=== PATIENT | female | born 1945 | race Caucasian/White ===

== ENCOUNTER 2017-11-06 10:09 | Day surgery (SDC) | payer OTHER ==
[~2017-11-06 10:09] MED LIST: ASPI-516 CHEW; CITA40TA4 PO; LISI20TA3 PO; METF1000 PO; PROP80TA PO; ROSU1TAB8 PO
[2017-11-06 10:25] VITALS: BP 208/108; PULSE 63; RESP 20; TEMP 97.6; O2SAT 94
[2017-11-06] MEDS ORDERED: ceFAZolin 2 GM PREMIX 50 ML IV SCH (10:30)
[2017-11-06] MEDS ORDERED: SODIUM CHLOR 0.45% 1000 ML IV SCH (10:30)
== END 2017-11-06 10:40 | disposition home or self-care (01) ==
LOC: HROP 10:09 → HRIP 10:10 → HROP 10:40
PROVIDERS: ATTEND Neurological Surgery
DX: G91.2 (Idiopathic) normal pressure hydrocephalus (principal)

== ENCOUNTER 2017-11-13 09:51 | Inpatient (IN) | payer OTHER, MEDICARE ==
[~2017-11-13] VITALS: Ht 162.6 cm; Wt 72.7 kg
[~2017-11-13 09:51] MED LIST changes: -ASPI-516 CHEW
[2017-11-13 10:10] VITALS: BP 103/76; PULSE 62; RESP 20; TEMP 97.9; O2SAT 98
[2017-11-13] MEDS ORDERED: MEMA1TAB2 PO (10:30)
[2017-11-13] MEDS ORDERED: METF500T PO (10:30)
[2017-11-13] MEDS ORDERED: PANT40TA3 PO (10:30)
[2017-11-13 10:57] LABS: AUTOMATED NEUTROPHIL # 5.2 TH/MM3 (1.8-7.7); BASOPHIL # 0.1 TH/MM3 (0-0.2); BASOPHIL % 0.8 % (0.0-2.0); EOSINOPHIL # 0.1 TH/MM3 (0-0.4); HEMATOCRIT 36.3 % (35.0-46.0); HEMOGLOBIN 12.4 GM/DL (11.6-15.3); LYMPH % 24.8 % (9.0-44.0); MEAN CELL VOLUME 85.5 FL (80.0-100.0); MEAN CORPUSCULAR HEMOGLOBIN 29.3 PG (27.0-34.0); MEAN CORPUSCULAR HGB CONC 34.3 % (32.0-36.0); MEAN PLATELET VOLUME 7.9 FL (7.0-11.0); MONOCYTE # 0.6 TH/MM3 (0-0.9); NEUT % 65.4 % (16.0-70.0); PLATELET COUNT 212 TH/MM3 (150-450); RED BLOOD COUNT 4.24 MIL/MM3 (4.00-5.30)
[2017-11-13] MEDS: SODIUM CHLOR 0.45% 1000 ML IV SCH (11:00)
[2017-11-13 11:15] LABS: BICARBONATE 32.4 MEQ/L (21.0-32.0); CALCIUM 9.4 MG/DL (8.5-10.1); CREATININE 1.11 MG/DL (0.50-1.00)
[2017-11-13] MEDS ORDERED: SODIUM CHLORIDE 0.9% FLUSH 10 ML FLUSH IV FLUSH PRN ×2 (11:45→16:00)
[2017-11-13] MEDS ORDERED: LACTULOSE SYRUP 20 GM/30 ML CUP PO PRN ×2 (11:45→16:00)
[2017-11-13] MEDS: ceFAZolin 2 GM PREMIX 50 ML IV SCH ×2 (11:53→13:41)
[2017-11-13] MEDS ORDERED: MAGNESIUM HYDROXIDE SUSP 30 ML CUP PO PRN ×2 (12:00→16:00)
[2017-11-13] MEDS ORDERED: BISACODYL 10 MG SUPP RECTAL PRN ×2 (12:00→16:00)
[2017-11-13] MEDS ORDERED: ONDANSETRON HCL 4 MG/2 ML VIAL IV PUSH PRN (12:00)
[2017-11-13] MEDS ORDERED: SENNOSIDES 8.6 MG TAB PO PRN ×2 (12:00→16:00)
[2017-11-13] MEDS: SODIUM CHLOR 0.9% 1000 ML INJ 1,000 ML IV SCH (12:00)
[2017-11-13] MEDS ORDERED: ALUMINUM/MAGNESIUM/SIMETH 30 ML CUP PO PRN (12:00)
[2017-11-13] MEDS ORDERED: MIDAZOLAM HCL 2 MG/2 ML VIAL ONE (12:13)
[2017-11-13 13:10] VITALS: BP 166/98; PULSE 64; RESP 16; TEMP 97.7; O2SAT 90
[2017-11-13 13:25] VITALS: BP 168/89; PULSE 60; RESP 16; O2SAT 98
[2017-11-13 13:55] VITALS: BP 156/89; PULSE 60; RESP 16; O2SAT 98
[2017-11-13 15:00] VITALS: BP 148/80; PULSE 60; RESP 16; O2SAT 97
--- NOTE | 2017-11-13 15:04 | RADRPT ---
EXAM DATE/TIME: 11/13/2017 13:27 [place] COMPARISON: No previous studies available for comparison. INDICATIONS : MEDICAL HISTORY : Memory Loss Hydrocephalus Osteoporosis DVT GERD Dementia Diabetes SURGIAL HISTORY : Hysterectomy Right Shoulder SX ENCOUNTER: Initial ACUITY: 3 weeks PAIN SCORE: 0/10 LUMBAR PUNCTURE TIME: 12:45 hours FLUORO TIME: 3.1 minutes IMAGE SERIES: 2 SEDATION TIME: 30 minutes LEVEL: Tip of lumbar drain was placed at T10 DEVICE(S): 1.) 5 [place] lumbar drain catheter PROCEDURE : 1. Fluoroscopically guided lumbar drain placement. 2. Conscious sedation with continuous EKG and oximetry monitoring. The risks, benefits and alternatives to the procedure were explained and verbal and written consent w as obtained. The site was prepped in sterile fashion. Full sterile technique was used, including ca p, mask, sterile gloves and gown and a large sterile sheet. Hand hygiene and 2% chlorhexidine and/or betadine/alcohol prep was utilized per protocol for cutaneous antisepsis. The skin and subcutaneous tissues were infiltrated with local anesthetic solution. With fluoroscopic guidance the lumbar thecal sac was punctured with a 14 gauge Touhy needle and a lum bar drain was placed with its tip at the level as described above and the catheter was sutured in adrian ce. CSF was identified returning from the catheter at the termination of the procedure. Conscious sedation was performed with the prescribed dosages and duration as above in the presence of an independent trained radiology nurse to assist in the monitoring of the patient. EKG and oximetry remained stable throughout the procedure. The patient tolerated the procedure well and there were n o complications. The patient was sent to post anesthesia recovery in stable condition. CONCLUSION: Uncomplicated lumbar drain placement as above. Soham Rod MD on November 13, 2017 at 14:56 Board Certified Radiologist. This report was verified electronically.
[2017-11-13] MEDS ORDERED: DEXTROSE 50% IN WATER 50 ML VIAL(D50) IV PUSH PRN (16:00)
[2017-11-13] MEDS ORDERED: GLUCAGON 1 MG/ML VIAL OTHER PRN (16:00)
[2017-11-13] MEDS ORDERED: RESP: ALBUTEROL 2.5 MG/3 ML NEB (PRN) NEB (16:00)
[2017-11-13] MEDS ORDERED: ZOLPIDEM TARTRATE 5 MG TAB PO PRN (16:00)
[2017-11-13] MEDS ORDERED: oxyCODONE/ACETAMINOPHEN 5 MG/325 MG TAB PO PRN ×2 (16:00)
[2017-11-13] MEDS: INSULIN NovoLIN REGULAR SUPPLEMENTAL SCALE SQ SCH ×2 (17:35→21:00)
[2017-11-13] MEDS: metFORMIN HCL 500 MG TAB PO SCH (18:00)
[2017-11-13 20:00] VITALS: BP 156/81; PULSE 67; RESP 18; TEMP 98.5; O2SAT 97
[2017-11-13] MEDS: SODIUM CHLORIDE 0.9% FLUSH 10 ML FLUSH IV FLUSH SCH (21:00)
[2017-11-13] MEDS: DOCUSATE SODIUM 50 MG/SENNA 8.6 MG TAB PO SCH (21:00)
[2017-11-13] MEDS ORDERED: SODIUM CHLORIDE 0.9% FLUSH 10 ML FLUSH IV FLUSH SCH (21:00)
[2017-11-13] MEDS ORDERED: DOCUSATE SODIUM 50 MG/SENNA 8.6 MG TAB PO SCH (21:00)
[2017-11-14] VITALS: BP 188/90; PULSE 78; RESP 18; TEMP 97.4; O2SAT 94
[2017-11-14] MEDS: SODIUM CHLOR 0.9% 1000 ML INJ 1,000 ML IV SCH (02:24)
[2017-11-14] MEDS: cloNIDine HCL 0.1 MG TAB PO PRN (02:52)
[2017-11-14 04:00] VITALS: BP 135/74; PULSE 80; RESP 18; TEMP 98.1; O2SAT 96
[2017-11-14 08:00] VITALS: BP 148/69; PULSE 58; RESP 18; TEMP 98; O2SAT 98
[2017-11-14] MEDS: INSULIN NovoLIN REGULAR SUPPLEMENTAL SCALE SQ SCH ×4 (08:00→21:25)
[2017-11-14] MEDS: LISINOPRIL 20 MG TAB PO SCH (08:04)
[2017-11-14] MEDS: DOCUSATE SODIUM 50 MG/SENNA 8.6 MG TAB PO SCH ×2 (08:04→21:25)
[2017-11-14] MEDS: CITALOPRAM HYDROBROMIDE 40 MG TAB PO SCH (08:04)
[2017-11-14] MEDS: PANTOPRAZOLE SOD 40 MG DELAYED RELEASE TAB PO SCH (08:05)
[2017-11-14] MEDS: HYDROCHLOROTHIAZIDE 25 MG TAB PO SCH (08:05)
[2017-11-14] MEDS: ATORVASTATIN 10 MG TAB PO SCH (08:05)
[2017-11-14] MEDS: PROPRANOLOL HCL 80 MG TAB PO SCH (08:12)
[2017-11-14] MEDS: metFORMIN HCL 500 MG TAB PO SCH ×2 (08:21→17:51)
[2017-11-14] MEDS: SODIUM CHLORIDE 0.9% FLUSH 10 ML FLUSH IV FLUSH SCH ×2 (08:22→21:25)
[2017-11-14 12:00] VITALS: BP 144/76; PULSE 65; RESP 18; TEMP 98; O2SAT 96
--- NOTE | 2017-11-14 13:12 | PD.CONS ---
HPI Service [facility] Hospitalists Consult Requested By Dr. Fox Reason for Consult Medical management Primary Care Physician Unknown Diagnoses: (1) Hypertension (2) Diabetes mellitus (3) Hyperlipidemia (4) NPH (normal pressure hydrocephalus) History of Present Illness The patient is a 72-year-old female with history of normal pressure hydrocephalus who is admitted to the neurosurgery service. Hospitalist consultation was requested for medical management. Patient reportedly has a history of hypertension, hyperlipidemia, and diabetes. She has no specific complaints at this time. Apparently she has had significant memory loss over the past few months as well as difficulty with ambulation. These are attributed to the normal pressure hydrocephalus. Review of Systems ROS Limitations: Poor Historian Constitutional: DENIES: Fever, Chills, Night Sweats Eyes: DENIES: Blurred vision, Vision loss Ears, nose, mouth, throat: DENIES: Hearing loss Respiratory: DENIES: Cough, Wheezing, Sputum production, Shortness of breath Cardiovascular: DENIES: Chest pain, Palpitations, Dyspnea on Exertion, Lower Extremity Edema Gastrointestinal: DENIES: Abdominal pain, Constipation, Diarrhea, Nausea, Vomiting Genitourinary: DENIES: Urinary frequency, Urinary incontinence, Urgency, Hematuria, Dysuria, Nocturia Musculoskeletal: DENIES: Joint pain, Muscle aches Integumentary: DENIES: Pruritus, Rash Hematologic/lymphatic: DENIES: Bruising Neurologic: COMPLAINS OF: Abnormal gait, DENIES: Headache Past Family Social History Allergies: Coded Allergies: No Known Allergies (Unverified , 11/13/17) Past Medical History Normal pressure hydrocephalus Hyperlipidemia Hypertension Diabetes mellitus Past Surgical History Tonsillectomy Hysterectomy Right shoulder rotator cuff surgery Reported Medications Crestor 20 mg daily at bedtime Propranolol 80 mg daily at bedtime Lisinopril/HCTZ 20/25 daily Citalopram 40 mg daily Namenda 10 mg twice a day Pantoprazole 40 mg daily Metformin 1000 mg daily, 500 mg every afternoon Family History Cancer Aneurysm Social History Quit smoking 3 weeks ago. Denies alcohol or illicit drug use. Physical Exam Vital Signs Vital Signs Date Time Temp Pulse Resp B/P (MAP) Pulse Ox O2 Delivery O2 Flow Rate FiO2 11/14/17 08:00 98.0 58 18 148/69 (95) 98 11/14/17 04:00 98.1 80 18 135/74 (94) 96 11/14/17 00:00 97.4 78 18 188/90 (122) 94 11/13/17 20:00 98.5 67 18 156/81 (106) 97 11/13/17 15:00 60 16 148/80 (102) 97 11/13/17 13:55 60 16 156/89 (111) 98 11/13/17 13:25 60 16 168/89 (115) 98 11/13/17 13:10 97.7 64 16 166/98 (120) 90 Physical Exam GENERAL: Well-nourished, well-developed female in no acute distress. HEENT: Normocephalic, atraumatic. Pupils equal, round and reactive. Extraocular movements intact. No scleral icterus. No injection or drainage. Oropharynx is clear. Mucous membranes are moist. CARDIOVASCULAR: Regular rate and rhythm without murmurs, gallops, or rubs. RESPIRATORY: Clear to auscultation. No wheezes, rales, or rhonchi. Breathing is non-labored. GASTROINTESTINAL: Abdomen soft, non-tender, nondistended. EXTREMITIES: No lower extremity edema. No calf tenderness. PSYCH: Alert, answers questions appropriately. She is confused and has poor recall. Result Diagram: 11/13/17 1048 11/13/17 1048 Imaging Last Impressions Lumbar Puncture Fluoroscopy 11/13/17 1121 Signed Impressions: Service Date/Time: Monday, November 13, 2017 13:27 - CONCLUSION: Uncomplicated lumbar drain placement as above. Soham Rod MD Assessment and Plan Assessment and Plan 1. Normal pressure hydrocephalus: Management per neurosurgery. Lumbar drain placed by interventional radiology. Continue physical therapy. 2. Diabetes mellitus: Diabetic diet. Monitor Accu-Cheks and cover with sliding scale insulin. Continue metformin. 3. Hypertension: Continue home medications. 4. Hyperlipidemia: Continue statin. 5. DVT prophylaxis: MARGAUX Turpin. Avoid chemical prophylaxis secondary to lumbar drain placement, possible future procedures. Galindo Finney MD Nov 14, 2017 13:12
[2017-11-14 16:00] VITALS: BP 147/82; PULSE 60; RESP 18; TEMP 99; O2SAT 97
--- NOTE | 2017-11-14 17:17 | HHI.NSPN ---
(Ben Sierra) History Chief Complaint: Difficulty walking. Improving after lumbar spinal drain. (Ben Sierra) Interval History 11/14/2017: Patient underwent a temporary lumbar spinal drain placement on 2017. She had physical therapy today and states that her gait was much better since the lumbar spinal drain was placed. She denies any headaches. She denies any pain in her legs. She has a Bourgeois catheter in place. (Ben Sierra) Review of Systems General: Negative for: fever, chills, insomnia Respiratory: Negative for: shortness of breath, cough, sputum Cardiovascular: Negative for: chest pain Gastrointestinal: Negative for: nausea, vomitting, diarrhea, constipation ( Ben Sierra) Exam Results Vital Signs Date Time Temp Pulse Resp B/P (MAP) Pulse Ox O2 Delivery O2 Flow Rate FiO2 11/14/17 12:00 98.0 65 18 144/76 (98) 96 11/13/17 11:02 Room Air Intake and Output 11/14/17 11/14/17 11/15/17 08:00 16:00 00:00 Intake Total 1000 ml Output Total 80 ml Balance 920 ml (Ben Sierra) Physical Examination GENERAL: Patient resting in bed in no acute distress and is pleasant. HEAD: Normocephalic, atraumatic. EYES: Pupils equal. Sclera non icteric. RESPIRATORY: CTA Bilaterally HEART: NSR Normal S1 and S2 ABDOMEN: Soft Positive BS SKIN: No cyanosis or erythema MUSCLE: Patient moves all 4 extremities, 5/5 strength in the lower extremities. NEUROLOGIC: Patient is awake and alert. Speech is clear and appropriate. Follows commands well. Sensation intact in extremities, comprehension is good. Cranial Nerves II-XII grossly intact. (Ben Sierra) Lab, Micro, Other Results Last Impressions Lumbar Puncture Fluoroscopy 11/13/17 1121 Signed Impressions: Service Date/Time: Monday, November 13, 2017 13:27 - CONCLUSION: Uncomplicated lumbar drain placement as above. Soham Rod MD 11/14/17 11/14/17 11/15/17 15:00 23:00 07:00 # Voids 3 (Ben Sierra) Medical Decision Making Impression and Plan A: 72 -year-old female with symptoms and MRI findings suggestive of normal- pressure hydrocephalus. She underwent a temporary lumbar spinal drain for further evaluation. P: She states that her gait is better after day 1 of drainage. We will have her participate with physical therapy tomorrow morning and then remove her lumbar spinal drain and she'll have to lay flat for 6 hours and then will be discharged home subsequently if no drainage. (Ben Sierra) Attending Statement The exam, history, and the medical decision-making described in the above note were completed with the assistance of the mid-level provider. I reviewed and agree with the findings presented. I attest that I had a [id number] encounter with the patient on the same day, and personally performed and documented my assessment and findings in the medical record. relates improvement of her gait with lumbar CSF drainage. Continue with drainage trial. (Omar Fox MD) Ben Sierra Nov 14, 2017 17:17 Omar Fox MD Nov 15, 2017 08:44
[2017-11-14 20:00] VITALS: BP 132/74; PULSE 58; RESP 18; TEMP 97.3; O2SAT 95
[2017-11-15] VITALS: BP 185/81; PULSE 70; RESP 18; TEMP 97.9; O2SAT 99
[2017-11-15 04:00] VITALS: PULSE 69; RESP 18; TEMP 97.9; O2SAT 95
[2017-11-15] MEDS: cloNIDine HCL 0.1 MG TAB PO PRN (06:52)
[2017-11-15 07:42] VITALS: BP 162/74; PULSE 63; RESP 20; TEMP 97.4; O2SAT 95
[2017-11-15] MEDS: INSULIN NovoLIN REGULAR SUPPLEMENTAL SCALE SQ SCH ×3 (08:00→16:21)
[2017-11-15] MEDS: SODIUM CHLORIDE 0.9% FLUSH 10 ML FLUSH IV FLUSH SCH (08:33)
[2017-11-15] MEDS: metFORMIN HCL 500 MG TAB PO SCH ×2 (08:34→18:00)
[2017-11-15] MEDS: CITALOPRAM HYDROBROMIDE 40 MG TAB PO SCH (08:34)
[2017-11-15] MEDS: HYDROCHLOROTHIAZIDE 25 MG TAB PO SCH (08:34)
[2017-11-15] MEDS: LISINOPRIL 20 MG TAB PO SCH (08:35)
[2017-11-15] MEDS: PROPRANOLOL HCL 80 MG TAB PO SCH (08:35)
[2017-11-15] MEDS: DOCUSATE SODIUM 50 MG/SENNA 8.6 MG TAB PO SCH (08:36)
[2017-11-15] MEDS: ATORVASTATIN 10 MG TAB PO SCH (08:36)
[2017-11-15] MEDS: PANTOPRAZOLE SOD 40 MG DELAYED RELEASE TAB PO SCH (08:36)
--- NOTE | 2017-11-15 09:12 | HHI.NSPN ---
(Ben Seirra) History Chief Complaint: Difficulty walking. Improving after lumbar spinal drain. (Ben Sierra) Interval History 11/14/2017: Patient underwent a temporary lumbar spinal drain placement on 2017. She had physical therapy today and states that her gait was much better since the lumbar spinal drain was placed. She denies any headaches. She denies any pain in her legs. She has a Bourgeois catheter in place. 11/15/17: Pt has mild headache this morning. Had confusion last night forgot where she was. Bourgeois remains in place. Lumbar spinal drain in place. We will have PT work with pt today and then remove drain. (Ben Sierra) Review of Systems General: Negative for: fever, chills, insomnia Respiratory: Negative for: shortness of breath, cough, sputum Cardiovascular: Negative for: chest pain Gastrointestinal: Negative for: nausea, vomitting, diarrhea, constipation ( Ben Sierra) Exam Results Vital Signs Date Time Temp Pulse Resp B/P (MAP) Pulse Ox O2 Delivery O2 Flow Rate FiO2 11/15/17 07:42 97.4 63 20 162/74 (103) 95 11/13/17 11:02 Room Air (Ben Sierra) Physical Examination GENERAL: Patient resting in bed in no acute distress and is pleasant. HEAD: Normocephalic, atraumatic. EYES: Pupils equal. Sclera non icteric. RESPIRATORY: CTA Bilaterally HEART: NSR Normal S1 and S2 ABDOMEN: Soft Positive BS SKIN: No cyanosis or erythema MUSCLE: Patient moves all 4 extremities, 5/5 strength in the lower extremities. NEUROLOGIC: Patient is awake and alert. Speech is clear and appropriate. Follows commands well. Sensation intact in extremities, comprehension is good. Cranial Nerves II-XII grossly intact. Pt with some confusion and disorientation today. (Ben Sierra) Lab, Micro, Other Results Last Impressions Lumbar Puncture Fluoroscopy 11/13/17 1121 Signed Impressions: Service Date/Time: Monday, November 13, 2017 13:27 - CONCLUSION: Uncomplicated lumbar drain placement as above. Soham Rod MD (Ben Sierra) Medical Decision Making Impression and Plan A: 72 -year-old female with symptoms and MRI findings suggestive of normal- pressure hydrocephalus. She underwent a temporary lumbar spinal drain for further evaluation. P: PT this morning then remove lumbar spinal drain. Pt will lay flat for 6 hours after drain removed. She will be discharged subsequently. (Ben Sierra) Attending Statement The exam, history, and the medical decision-making described in the above note were completed with the assistance of the mid-level provider. I reviewed and agree with the findings presented. I attest that I had a [id number] encounter with the patient on the same day, and personally performed and documented my assessment and findings in the medical record. (Omar Fox MD) Ben Sierra Nov 15, 2017 09:12 Omar Fox MD Nov 15, 2017 12:10
[2017-11-15] MEDS ORDERED: PNEUMOCOCCAL POLYVALENT INJ 25 MCG/0.5 ML SYR IM ONE (10:00)
[2017-11-15] MEDS: SODIUM CHLOR 0.45% 1000 ML IV SCH (11:00)
[2017-11-15 11:54] VITALS: BP 154/74; PULSE 57; RESP 20; TEMP 98.5; O2SAT 97
--- NOTE | 2017-11-15 14:00 | HHI.PR ---
Subjective Remarks Follow up renal insufficiency, diabetes. Patient states that she feels much better today. Lumbar drain was removed. Ambulating better. Objective Vitals Vital Signs Date Time Temp Pulse Resp B/P (MAP) Pulse Ox O2 Delivery O2 Flow Rate FiO2 11/15/17 11:54 98.5 57 20 154/74 (100) 97 11/15/17 07:42 97.4 63 20 162/74 (103) 95 11/15/17 04:00 97.9 69 18 95 11/15/17 00:00 97.9 70 18 185/81 (115) 99 11/14/17 20:00 97.3 58 18 132/74 (93) 95 11/14/17 16:00 99.0 60 18 147/82 (103) 97 I/O 11/14/17 11/14/17 11/14/17 11/15/17 11/15/17 11/15/17 07:00 15:00 23:00 07:00 15:00 23:00 Intake Total 1000 ml Output Total 80 ml Balance 920 ml Intake IV Total 1000 ml Drainage Total 80 ml # Voids 3 Result Diagram: 11/13/17 1048 11/13/17 1048 Imaging Last Impressions Lumbar Puncture Fluoroscopy 11/13/17 1121 Signed Impressions: Service Date/Time: Monday, November 13, 2017 13:27 - CONCLUSION: Uncomplicated lumbar drain placement as above. Soham Rod MD Objective Remarks General: No acute distress. Heart: Regular rate and rhythm. No murmur. Lungs: Clear to auscultation bilaterally. No wheezes, rales, or rhonchi. Breathing is nonlabored. Abdomen: Soft, nontender, nondistended. Extremities: No lower extremity edema. Psych: Alert, answers questions appropriately. Somewhat confused. Procedures 11/13/17 lumbar drain placement Urinary Catheter: No Vascular Central Line Catheter: No A/P Problem List: (1) Hypertension ICD Code: I10 - Essential (primary) hypertension (2) Diabetes mellitus ICD Code: E11.9 - Type 2 diabetes mellitus without complications (3) Hyperlipidemia ICD Code: E78.5 - Hyperlipidemia, unspecified (4) NPH (normal pressure hydrocephalus) ICD Code: G91.2 - (Idiopathic) normal pressure hydrocephalus Assessment and Plan 1. Normal pressure hydrocephalus: Management per neurosurgery. Lumbar drain placed by interventional radiology. Drain removed this morning. Patient ambulating better. Now on bed rest for 6 hours. 2. Diabetes mellitus: Diabetic diet. Monitor Accu-Cheks and cover with sliding scale insulin. Continue metformin. 3. Hypertension: Continue home medications. 4. Hyperlipidemia: Continue statin. 5. DVT prophylaxis: MARGAUX Turpin. Avoid chemical prophylaxis secondary to lumbar drain placement, possible future procedures. 6. Acute kidney injury: Labs are pending today. Continue IV fluids. Discharge Planning Per neurosurgery, likely discharge home this afternoon. Galindo Finney MD Nov 15, 2017 13:59
[2017-11-15 15:14] LABS: ALBUMIN 3.6 GM/DL (3.4-5.0); ALT (GPT) 18 U/L (10-53); AST (GOT) 16 U/L (15-37); BICARBONATE 26.4 MEQ/L (21.0-32.0); BLOOD UREA NITROGEN 19 MG/DL (7-18); CALCIUM 8.9 MG/DL (8.5-10.1); CHLORIDE 100 MEQ/L (98-107); CREATININE 0.94 MG/DL (0.50-1.00); GLOMERULAR FILTRATION RATE 59 ML/MIN (>89); GLUCOSE,RANDOM 110 MG/DL (74-106); SODIUM (NA) 135 MEQ/L (136-145)
[2017-11-15 15:17] LABS: ALKALINE PHOSPHATASE 57 U/L (45-117); TOTAL BILIRUBIN ADULT 0.8 MG/DL (0.2-1.0); TOTAL PROTEIN 6.9 GM/DL (6.4-8.2)
[2017-11-15 16:00] VITALS: BP 130/69; PULSE 64; RESP 20; TEMP 98.3; O2SAT 98
== END 2017-11-15 18:19 | disposition home or self-care (01) | DRG 57 ==
LOC: HROP 09:51 → HRIP 09:52 → N05B 18:35 → HROP 18:37
PROVIDERS: ADMIT Neurological Surgery; ATTEND Neurological Surgery
PROC: 009U30Z Drainage of Spinal Canal with Drainage Device, Percutaneous Approach (ICD-10-PCS; principal; 2017-11-13)
DX: G91.2 (Idiopathic) normal pressure hydrocephalus (principal); N17.9 Acute kidney failure, unspecified; E11.9 Type 2 diabetes mellitus without complications; I10 Essential (primary) hypertension; E78.5 Hyperlipidemia, unspecified; R26.2 Difficulty in walking, not elsewhere classified; Z79.84 Long term (current) use of oral hypoglycemic drugs; Z23 Encounter for immunization
CPT/HCPCS: 63741; 77003; 80048; 80053; 82948; 85025; 85610; 85730; 90732; 94150; 99152; 99153; C1755; J0690; J2250; J3010; J7030

== ENCOUNTER → 2018-01-17 | Outpatient (CLI) | payer OTHER ==
[~2018-01-17] MED LIST changes: +ASPI1TAB57 PO; +CLON0.1T PO; +MEMA1TAB2 PO; +METF500T PO; +PANT40TA3 PO; +WALKER WHEELS/F1 MIS
== END ==
LOC: CPRE 11:57
PROVIDERS: ATTEND Neurological Surgery
DX: G91.2 (Idiopathic) normal pressure hydrocephalus (principal)

== ENCOUNTER 2018-01-22 05:52 | Inpatient (IN) | payer OTHER, MEDICARE ==
[~2018-01-22] VITALS: Ht 162.6 cm; Wt 72.5 kg
[~2018-01-22 05:52] MED LIST changes: -CLON0.1T PO; -WALKER WHEELS/F1 MIS
[2018-01-22] MEDS ORDERED: CHLORHEXIDINE GLUCONATE 2 % 1 PACK (2 CLOTHS) TOPICAL PRN (06:30)
[2018-01-22] MEDS ORDERED: LACTATED RINGER'S 1000 ML IV PRN (06:30)
[2018-01-22] MEDS ORDERED: SODIUM CHLORID 0.9% 500 ML IV PRN (06:30)
[2018-01-22] MEDS ORDERED: POVIDONE IODINE 5% (ANTISEPSIS KIT) 4 APPLICATIONS EACH NARE PRN (06:30)
[2018-01-22] MEDS ORDERED: METOPROLOL TARTRATE 25 MG TAB PO PRN (06:30)
[2018-01-22] MEDS ORDERED: MIDAZOLAM HCL 2 MG/2 ML VIAL ONE (08:30)
--- NOTE | 2018-01-22 08:45 | MH ---
cc: Omar Fox MD,Yuval Streeter,Kelly LEVY DATE OF ADMISSION: 01/22/2018 ADMITTING DIAGNOSIS: Normal pressure hydrocephalus. HISTORY OF PRESENT ILLNESS: This is a 72-year-old female who presented to us for an evaluation of difficulty with coordination, speech, memory and urinary incontinence. Her significant other helps give the history. She has a history of falling a lot and in 2014, she fell and had a concussion. The fall occurred while she was [place] and she had a CT at that time, but no MRI scan. She states she saw Dr. Duenas, who obtained an MRI of the brain and she was referred to us for further evaluation. Her symptoms have progressively gotten worse since that time. She is having difficulty expressing her thoughts and having difficulty with coordination and walking. She put her clothes on backwards. She has been having difficulty with urinary incontinence since October 2017. She has urge incontinence during the day and hernandez incontinence at night. She has also had difficulty with her memory since the summer of 2016. She also has difficulty recognizing faces and even family members at times. She underwent a temporary lumbar spinal drain placement to evaluate further concerns of normal pressure hydrocephalus. The significant other reports that she had improvement in her gait. He also reports that she is not having any urinary incontinence. He did state, however, that her memory remains poor. She also complains of pain radiating up her head, although she understands that this is likely not from normal pressure hydrocephalus. PAST MEDICAL HISTORY: Significant for: 1. Dementia. 2. Headaches. 3. Gastroesophageal reflux disease. 4. COPD. 5. Normal pressure hydrocephalus. 6. Hyperlipidemia. 7. Hypertension. 8. Diabetes mellitus. FAMILY HISTORY: Her mother is at 80 years old, had a history of aneurysm. Her father is at 64 years old, had a history of cancer. She has a brother 63 years old. She also has a sister. CURRENT MEDICATIONS: She takes: 1. Citalopram 40 mg daily. 2. 10 mg daily. 3. Doxycycline 100 mg. 4. Gabapentin 100 mg. 5. Lisinopril/hydrochlorothiazide 20/25 mg. 6. Lovastatin 40 mg. 7. Metformin 1000 mg. 8. Pantoprazole 40 mg. 9. Propranolol 80 mg. 10. Rosuvastatin 20 mg. 11. Memantine 10 mg. 12. Galantamine 4 mg. ALLERGIES: SHE HAS NO KNOWN DRUG ALLERGIES. SOCIAL HISTORY: She does not have children. She lives with her significant other. She smokes 6 cigarettes a day for 50 years. She does not drink alcohol. REVIEW OF SYSTEMS: CONSTITUTIONAL: She denies any fever or chills. EARS, NOSE AND THROAT: Denies any sinus drainage, sore throat or difficulty swallowing. CARDIOVASCULAR: She denies any chest pain or RESPIRATORY: No cough. Positive for shortness of breath. GENITOURINARY: Positive for urinary urgency and frequency and incontinence. MUSCULOSKELETAL: Positive for joint pain. SKIN: No rashes or pruritus. NEUROLOGIC: Positive for difficulty with memory and difficulty with coordination and ambulating GASTROINTESTINAL: No nausea or vomiting. PSYCHIATRIC: Positive for anxiety and depression symptoms ENDOCRINE: No polydipsia. Positive for polyuria. Positive for bruising tendencies. No bleeding tendencies. PHYSICAL EXAMINATION: HEAD: Normocephalic, atraumatic. NECK: Supple. No carotid bruits on auscultation. LUNGS: Clear to auscultation bilaterally. HEART: Regular rate and rhythm. Normal S1, S2. ABDOMEN: Soft, nontender. Positive bowel sounds. EXTREMITIES: No cyanosis or erythema. MUSCULOSKELETAL: She is ambulating with a more steady gait without any assistive device. NEUROLOGIC: She is awake, alert and oriented. She has difficulty following complex commands. Speech is clear. Pupils are 3 mm bilaterally, reactive bilaterally. Tongue is midline. Shoulder shrug symmetric. Face is symmetric. DATA REVIEWED: MRI of the brain from 07/07/2017 was reviewed and reveals generalized cerebral atrophy, with moderate ventriculomegaly. There is slight transependymal T2 weighted changes relative to possible flow migration. IMPRESSION: This is a 72-year-old female who underwent placement of a temporary lumbar spinal drain and had improvement in her gait and urinary frequency and incontinence. Her short-term memory did not improve. Given that there was improvement noted in her gait and urinary symptoms, we discussed the option of a ventriculoperitoneal shunt. PLAN: We have discussed the treatment options and since she has improved following temporary lumbar spinal drainage, we have discussed a ventriculoperitoneal shunt with the patient and her significant other. The procedure as well as the risks, benefits, alternatives and recovery time were explained in great detail with the patient. 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 They also understand that they will not likely see an improvement in the shooting pains that she complains of in her head. The patient and her significant other understand the procedure, as well as the risks involved and they requested that we proceed and she was, therefore, scheduled accordingly. Dictated by ERIC Amos MD MICHAELA Alarcon/NONI , 04:39 PM , 05:39 PM
[2018-01-22] MEDS ORDERED: VANCOMYCIN HCL 1000 MG VIAL ONE (08:48)
[2018-01-22] MEDS ORDERED: BUPIVACAINE/EPINEPHRINE 0.5% PF 30 ML VIAL ONE (08:48)
[2018-01-22] MEDS ORDERED: THROMBIN (TOPICAL) 5,000 UNIT VIAL ONE (08:48)
[2018-01-22] MEDS ORDERED: GELFOAM SIZE 100 ONE (08:49)
[2018-01-22] MEDS ORDERED: GENTAMICIN SULFATE 80 MG/2 ML VIAL ONE (08:51)
[2018-01-22] MEDS: ceFAZolin 2 GM PREMIX 50 ML IV SCH ×2 (09:12→10:33)
[2018-01-22] MEDS ORDERED: DO NOT ADM ANY ANTICOAGULANT DRUGS PRN (11:10)
[2018-01-22] MEDS ORDERED: DEXTROSE 50% IN WATER 50 ML VIAL(D50) IV PUSH PRN ×2 (11:15→16:30)
[2018-01-22] MEDS ORDERED: GLUCAGON 1 MG/ML VIAL OTHER PRN ×2 (11:15→16:30)
--- NOTE | 2018-01-22 11:17 | PD.OP ---
MD Yvan Mcguire MD Operative Report Date of Surgery: Jan 22, 2018 Preoperative Diagnosis: Normal pressure hydrocephalus Postoperative Diagnosis: Same Procedure: Right frontal ventriculoperitoneal shunt placement with Codman programmable valve Anesthesia: Gen. endotracheal by Vy melendez Surgeon: Omar Fox M.D. Embalmer/Funeral Director(s): Daniel Arellano Operation and Findings: Following administration of general endotracheal anesthesia, patient was placed in a supine position and a Bourgeois catheter placed along with sequential compression devices. Ancef 2gm was administered intravenously. The head secured in donut and turned 30 to the left side and a shoulder roll placed in the right side and all pressure points adequately padded. The right frontal parietal occipital anterior neck and chest and abdomen area was shaved and prepped with a Betadine solution and Chloraprep. Draping with Ioban also undertaken along with the usual sterile draping. Using landmarks of 11 cm behind the nasion and 3 cm right of the midline a curvilinear right frontal incision was made after infiltrating the skin was 0.5% Marcaine with epinephrine solution. A wil hole was made with an automatic damper maker and the underlying dura cauterized with bipolar cautery and opened in a cruciate format. Right subcostal abdominal incision site was then infiltrated with 0.5% Marcaine with epinephrine solution and incision made extending down through the anterior fascia of the rectus sheath and then the posterior fascia also incised and the peritoneal wall identified and also incised in a 3-0 silk pursestring suture was been placed around the opening. A subcutaneous tunnel was then created between the frontal and the abdominal incision site with a small interim incision in the neck and the bactiseal Codman peritoneal catheter was then tunneled through. The catheter was connected to a HaQuerydaym Codman programmable valve set at 100 mm a water setting with the anti-siphon device. The ventricular catheter was then passed the 6 cm in depth and clear CSF encountered and this was then connected to the proximal reservoir valve with a 2 -0 silk tie. Good distal CSF flow run off was noted from the peritoneal catheter which was then dropped into the peritoneum and the pursestring suture was tied along with the approximation of the anterior rectus sheath with 3-0 Vicryl interposition and 3-0 Vicryl subcuticular cyst also place an interrupted fashion and final skin closure with tori. Incision sites were irrigated with the saline solution prior to closure. The right frontal and small neck incision areas were then also approximated with 3-0 Vicryl galeal stitches and tori. Sterile dressings then applied and the patient extubated and taken recovery room. There were no intraoperative complications and all sponge and needle, was correct at the end of the procedure. Estimated blood loss less than 25 cc. Omar Fox MD Jan 22, 2018 11:17
[2018-01-22] MEDS ORDERED: ALUMINUM/MAGNESIUM/SIMETH 30 ML CUP PO PRN (12:00)
[2018-01-22] MEDS ORDERED: PROPOFOL 200 MG/20 ML AMP IV ONE (12:00)
[2018-01-22] MEDS ORDERED: PHENYLEPH/NS 1000 MCG/10 ML SYR IV ONE (12:00)
[2018-01-22] MEDS ORDERED: cloNIDine HCL 0.1 MG TAB PO PRN (12:00)
[2018-01-22] MEDS ORDERED: LIDOCAINE HCL 1% PF 5 ML SYRINGE OTHER ONE (12:00)
[2018-01-22] MEDS ORDERED: DEXAMETHASONE SOD PHOS 4 MG/ML VIAL IV ONE (12:00)
[2018-01-22] MEDS ORDERED: ACETAMINOPHEN 325 MG TAB PO PRN (12:00)
[2018-01-22] MEDS ORDERED: ePHEDrine/NS 25 MG/5 ML SYRINGE IV ONE (12:00)
[2018-01-22] MEDS ORDERED: GLYCOPYRROLATE 1 MG/5 ML SYRINGE IV PUSH ONE (12:00)
[2018-01-22] MEDS ORDERED: NS + KCL 20 MEQ INJ 1,000 ML IV SCH (12:00)
[2018-01-22] MEDS ORDERED: ONDANSETRON HCL 4 MG/2 ML VIAL IV ONE (12:00)
[2018-01-22] MEDS ORDERED: SODIUM CHLORIDE 0.9% FLUSH 10 ML FLUSH IV FLUSH PRN (12:00)
[2018-01-22] MEDS ORDERED: ACETAMINOPHEN/HYDROcodone 325 MG/10 MG TAB PO PRN (12:00)
[2018-01-22] MEDS ORDERED: NEOSTIGMINE 5 MG/5 ML SYRINGE IV PUSH ONE (12:00)
[2018-01-22] MEDS ORDERED: MENTHOL LOZENGE BUCCAL PRN (12:00)
[2018-01-22] MEDS ORDERED: ROCURONIUM INJ 50 MG/5 ML SYRINGE IV PUSH ONE (12:00)
[2018-01-22] MEDS ORDERED: MORPHINE SULFATE 2 MG/ML INJ IV PUSH PRN (12:00)
[2018-01-22] MEDS ORDERED: INSULIN NovoLIN REGULAR SUPPLEMENTAL SCALE SQ SCH (12:00)
[2018-01-22] MEDS ORDERED: RESP: ALBUTEROL 2.5 MG/3 ML NEB (PRN) NEB (12:00)
[2018-01-22] MEDS ORDERED: SENNOSIDES 8.6 MG TAB PO PRN (12:15)
[2018-01-22] MEDS ORDERED: MAGNESIUM HYDROXIDE SUSP 30 ML CUP PO PRN (12:15)
[2018-01-22] MEDS ORDERED: BISACODYL 10 MG SUPP RECTAL PRN (12:15)
[2018-01-22] MEDS ORDERED: PROMETHAZINE INJ 25 MG/ML VIAL IM PRN (12:15)
[2018-01-22] MEDS ORDERED: LACTULOSE SYRUP 20 GM/30 ML CUP PO PRN (12:15)
[2018-01-22] MEDS ORDERED: *morphine SULFATE 4 MG/ML PERIprocedure ONLY ONE ×2 (13:16→15:02)
--- NOTE | 2018-01-22 15:58 | RADRPT ---
EXAM DATE/TIME: 01/22/2018 15:44 [place] COMPARISON: No previous studies available for comparison. INDICATIONS : Post op ventriculoperitoneal shunt RADIATION DOSE: 50.06 CTDIvol (mGy) MEDICAL HISTORY : Diverticulitis. Hypertension. Chronic obstructive pulmonary disease.Dementia, Diabetes, Skin cancer SURGICAL HISTORY : Hysterectomy. ENCOUNTER: Initial ACUITY: 1 day PAIN SCALE: 3/10 LOCATION: cranial TECHNIQUE: Multiple contiguous axial images were obtained of the head. Using automated exposure control and adj ustment of the mA and/or kV according to patient size, radiation dose was kept as low as reasonably a chievable to obtain optimal diagnostic quality images. DICOM format image data is available electro nically for review and comparison. FINDINGS: CEREBRUM: The ventricles are mildly prominent for age. There is bilateral cortical atrophy. Patient is status p ost placement of a right ventricular shunt which is positioned in the right lateral ventricle. No ev idence of midline shift, mass lesion, hemorrhage or acute infarction. No extra-axial fluid collectio ns are seen. Small amount of intracranial air secondary to recent surgery. POSTERIOR FOSSA: The cerebellum and brainstem are intact. The 4th ventricle is midline. The cerebellopontine angle i s unremarkable. EXTRACRANIAL: The visualized portion of the orbits is intact. SKULL: Vicente hole along the right frontal bone. CONCLUSION: 1. Postsurgical changes characteristic of a shunt placement. There is a right ventricular shunt in pl ino in the right lateral ventricle. Small amount of intracranial air. 2. Bilateral cortical atrophy. Paulino Cotton MD on January 22, 2018 at 15:54 Board Certified Radiologist. This report was verified electronically.
[2018-01-22 16:00] VITALS: BP 163/72; PULSE 58; RESP 18; TEMP 97.3; O2SAT 97
[2018-01-22] MEDS: ACETAMINOPHEN/HYDROcodone 325 MG/10 MG TAB PO PRN ×2 (16:20→22:24)
--- NOTE | 2018-01-22 16:23 | PD.CONS ---
HPI Service [facility] Consult Requested By Dr. MARITA SMITH MD Reason for Consult Medical management Primary Care Physician Non-Staff Diagnoses: (1) Dementia (2) Diabetes mellitus (3) NPH (normal pressure hydrocephalus) (4) Hyperlipidemia (5) Hypertension History of Present Illness Patient is a 72-year-old female. With history of what sounds like normal pressure hydrocephalus. Who has been having issues with coordination, speech, memory and urinary incontinence. Patient has been falling a lot since 2015 when she fell and had a concussion. This occurred when she was in [place]. She had a CAT scan but no MRI at that time. She saw Dr. Duenas who did an MRI of the brain came to Dr. SMITH for evaluation regarding normal pressure hydrocephalus. Patient has urge incontinence and incontinence at night has difficulty with memory since 2017 underwent a temporary lumbar spinal drain placement evaluate for the concerns of normal pressure hydrocephalus had improvement in her gait. But did not have any urinary incontinence. Memory was still poor. Patient underwent ATTENDING PHYSICIAN shunt today Been asked to consult regarding medical management Review of Systems ROS Limitations: Altered Mental Status, Poor Historian Constitutional: COMPLAINS OF: Dizziness, DENIES: Diaphoretic episodes, Fatigue , Fever, Weight gain, Weight loss, Chills, Change in appetite, Night Sweats Endocrine: DENIES: Abnorml menstrual pattern, Heat/cold intolerance, Polydipsia Eyes: DENIES: Blurred vision, Diplopia, Eye inflammation, Eye pain, Vision loss , Photosensitivity, Double Vision Ears, nose, mouth, throat: DENIES: Tinnitus, Hearing loss, Vertigo, Nasal discharge, Oral lesions, Throat pain, Hoarseness, Running Nose, Epistaxis, Sinus Pain, Toothache Respiratory: DENIES: Apneas, Cough, Snoring, Wheezing, Hemoptysis, Sputum production, Shortness of breath Cardiovascular: DENIES: Chest pain, Palpitations, Syncope, Dyspnea on Exertion , PND, Lower Extremity Edema, Orthopnea Gastrointestinal: DENIES: Abdominal pain, Black stools, Bloody stools, Constipation, Diarrhea, Nausea, Vomiting, Anorexia Genitourinary: COMPLAINS OF: Urinary incontinence, DENIES: Abnormal vaginal bleeding, Dysmenorrhea, Dyspareunia, Sexual dysfunction, Urgency, Hematuria, Dysuria, Nocturia, Vaginal discharge Musculoskeletal: DENIES: Joint pain, Muscle aches, Stiffness, Joint Swelling, Back pain Integumentary: DENIES: Abnormal pigmentation, Pruritus, Rash, Nail changes Hematologic/lymphatic: DENIES: Bruising, Lymphadenopathy Immunologic/allergic: DENIES: Eczema, Urticaria Neurologic: COMPLAINS OF: Abnormal gait, Poor Balance, DENIES: Headache, Localized weakness, Paresthesias, Seizures, Speech Problems, Tremor Psychiatric: COMPLAINS OF: Confusion, Depression, DENIES: Anxiety, Mood changes , Hallucinations, Agitation, Suicidal Ideation, Homicidal Ideation, Delusions Except as stated in HPI: all other systems reviewed are Neg Past Family Social History Allergies: Coded Allergies: No Known Allergies (Unverified , 01/22/18) Past Medical History Dementia headaches GERD COPD normal pressure hydrocephalus hyperlipidemia hypertension Diabetes mellitus Past Surgical History Hysterectomy Right rotator cuff repair Skin cancer removal Reported Medications Reported Meds & Active Scripts Active Reported Aspirin 81 (Aspirin) 81 Mg Tabdr 81 Mg PO DAILY Memantine 10 Mg Tab 10 Mg PO BID Pantoprazole (Pantoprazole Sodium) 40 Mg Tab 40 Mg PO DAILY Metformin (Metformin HCl) 500 Mg Tab 500 Mg PO HS With a meal Rosuvastatin (Rosuvastatin Calcium) 20 Mg Tab 20 Mg PO HS Propranolol (Propranolol HCl) 80 Mg Tab 80 Mg PO HS Lisinopril-Hctz 20-25 Mg Tab 1 Tab PO DAILY Citalopram (Citalopram Hydrobromide) 40 Mg Tab 40 Mg PO DAILY Metformin (Metformin HCl) 1,000 Mg Tab 1,000 Mg PO DAILY Active Ordered Medications Current Medications Lactated Ringer's 1,000 ml @ 30 mls/hr Q24H PRN IV SEE LABEL COMMENTS Last administered on 01/22/18at 06:30; Start 01/22/18 at 06:30; Stop 01/25/18 at 06:29 Sodium Chloride 500 ml @ 30 mls/hr [id number] PRN IV SEE LABEL COMMENTS; Start at 06:30; Stop 01/25/18 at 06:29 Metoprolol Tartrate (Lopressor) 25 mg VAMPER PRN PO SEE LABEL COMMENTS; Start 01/22/18 at 06:30; Stop 01/25/18 at 06:29 Povidone Iodine (Betadine 5% Antisepsis Kit) 1 applic VAMPER PRN EACH NARE SEE LABEL COMMENTS Last administered on 01/22/18at 06:30; Start 01/22/18 at 06:30 ; Stop 01/25/18 at 06:29 Chlorhexidine Gluconate (Chlorhexidine 2% Cloth) 3 pack VAMPER PRN TOPICAL SEE LABEL COMMENTS Last administered on 01/22/18at 06:15; Start 01/22/18 at 06:30 ; Stop 01/25/18 at 06:29 Sodium Chloride 1,000 ml @ 30 mls/hr Q24H IV ; Start 01/22/18 at 06:30 Cefazolin Sodium/ Dextrose 50 ml @ 100 mls/hr VAMPER IV Last administered on 01/22/18at 10:33; Start 01/22/18 at 06:30; Stop 01/25/18 at 06:29 Fentanyl Citrate (fentaNYL INJ) 100 mcg STK-MED ONCE .ROUTE ; Start 01/22/18 at 08:29; Stop 01/22/18 at 08:30; Status DC Midazolam HCl (Versed Inj) 2 mg STK-MED ONCE .ROUTE ; Start 01/22/18 at 08:30; Stop 01/22/18 at 08:31; Status DC Vancomycin HCl (Vancomycin Inj) 1,000 mg STK-MED ONCE .ROUTE ; Start 01/22/18 at 08:48; Stop 01/22/18 at 08:49; Status DC Thrombin (Thrombin Top Soln) 10,000 units STK-MED ONCE .ROUTE Last administered on 01/22/18at 10:15; Start 01/22/18 at 08:48; Stop 01/22/18 at 08:49 ; Status DC Bupivacaine HCl/ Epinephrine Bitart (Sensorcaine-Epinephrine Pf 0.5% Inj) 30 ml STK-MED ONCE .ROUTE Last administered on 01/22/18at 10:03; Start 01/22/18 at 08: 48; Stop 01/22/18 at 08:49; Status DC Gelatin (Gelfoam 100 Top) 1 foam STK-MED ONCE .ROUTE Last administered on 10:15; Start 01/22/18 at 08:49; Stop 01/22/18 at 08:50; Status DC Gentamicin Sulfate (Gentamicin Inj) 240 mg STK-MED ONCE .ROUTE Last administered on 01/22/18at 10:15; Start 01/22/18 at 08:51; Stop 01/22/18 at 08:52 ; Status DC Citalopram Hydrobromide (CeleXA) 40 mg DAILY PO ; Start 01/23/18 at 09:00 Memantine (Namenda) 10 mg BID PO ; Start 01/22/18 at 21:00 Pantoprazole Sodium (Protonix) 40 mg DAILY PO ; Start 01/23/18 at 09:00 Propranolol HCl (Inderal) 80 mg HS PO ; Start 01/22/18 at 21:00 Non-Formulary Medication 1 tab DAILY PO ; Start 01/23/18 at 09:00; Status UNV Atorvastatin Calcium (Lipitor) 40 mg HS PO ; Start 01/22/18 at 21:00 Dextrose (D50w (Vial) Inj) 50 ml UNSCH PRN IV PUSH HYPOGLYCEMIA-SEE COMMENTS; Start 01/22/18 at 11:15 Glucagon (Glucagon Inj) 1 mg UNSCH PRN OTHER HYPOGLYCEMIA-SEE COMMENTS; Start 01/22/18 at 11:15 Insulin Human Regular (NovoLIN R SUPPLEMENTAL SCALE) 1 ACHS SLIDING SCALE SQ ; Start 01/22/18 at 12:00 Potassium Chloride/Sodium Chloride 1,000 ml @ 100 mls/hr Q10H IV Last administered on 01/22/18at 12:00; Start 01/22/18 at 12:00; Stop 01/22/18 at 12:03 ; Status DC Sodium Chloride (NS Flush) 2 ml UNSCH PRN IV FLUSH FLUSH AFTER USING IV ACCESS ; Start 01/22/18 at 12:00 Sodium Chloride (NS Flush) 2 ml BID IV FLUSH ; Start 01/22/18 at 21:00 Cefazolin Sodium 1000 mg/Sodium Chloride 100 ml @ 200 mls/hr Q8H IV ; Start at 18:00; Stop 01/23/18 at 10:29 Al Hydrox/Mg Hydrox/Simethicone (Mag-Al Plus Susp Liq) 30 ml Q6H PRN PO DYSPEPSIA; Start 01/22/18 at 12:00 Ondansetron HCl (Zofran Inj) 4 mg Q6H PRN IV PUSH NAUSEA OR VOMITING; Start at 12:00 Promethazine HCl (Phenergan Inj) 25 mg Q4H PRN IM NAUSEA OR VOMITING; Start at 12:15 Acetaminophen/ Hydrocodone Bitart (Agate 10-325 Mg) 1 tab Q4H PRN PO PAIN SCALE 1 TO 5; Start 01/22/18 at 12:00 Acetaminophen/ Hydrocodone Bitart (Agate 10-325 Mg) 2 tab Q4H PRN PO PAIN SCALE 6 TO 10; Start 01/22/18 at 12:00 Morphine Sulfate (Morphine Inj) 2 mg Q2H PRN IV PUSH breakthrough pian> 6; Start 01/22/18 at 12:00 Clonidine (Catapres) 0.1 mg Q6H PRN PO SYS BP GREATER THAN 170 MMHG; Start at 12:00 Acetaminophen (Tylenol) 650 mg Q4H PRN PO TEMPERATURE > 101.5 F; Start at 12:00 Menthol (Paulina Yash) 1 lozenge UNSCH PRN BUCCAL SORE THROAT; Start 01/22/18 at 12:00 Zolpidem Tartrate (Ambien) 5 mg HS PRN PO INSOMNIA; Start 01/22/18 at 21:00 Albuterol Sulfate (Albuterol Neb) 2.5 mg Q4HR NEB PRN NEB WHEEZING; Start 01/22 at 12:00 Senna/Docusate Sodium (Santa-Colace) 1 tab BID PO ; Start 01/22/18 at 21:00 Magnesium Hydroxide (Milk Of Magnesia Liq) 30 ml Q12H PRN PO Mild constipation ; Start 01/22/18 at 12:15 Sennosides (Senokot) 17.2 mg Q12H PRN PO Moderate constipation; Start 01/22/18 at 12:15 Bisacodyl (Dulcolax Supp) 10 mg DAILY PRN RECTAL SEVERE CONSITIPATION; Start at 12:15 Lactulose (Lactulose Liq) 30 ml DAILY PRN PO SEVERE CONSITIPATION; Start at 12:15 Miscellaneous Information ALL NURSING DEPARTME... UNSCH PRN .XX SEE LABEL COMMENTS; Start 01/22/18 at 11:10; Stop 01/23/18 at 11:09 Lisinopril (Prinivil) 20 mg DAILY PO ; Start 01/23/18 at 09:00 Hydrochlorothiazide (Hydrodiuril) 25 mg DAILY PO ; Start 01/23/18 at 09:00 Morphine Sulfate (*morphine INJ PERIprocedure ONLY) 4 mg STK-MED ONCE .ROUTE Last administered on 01/22/18at 13:16; Start 01/22/18 at 13:16; Stop 01/22/18 at 13:17; Status DC Morphine Sulfate (*morphine INJ PERIprocedure ONLY) 4 mg STK-MED ONCE .ROUTE ; Start 01/22/18 at 15:02; Stop 01/22/18 at 15:03; Status DC Family History Mother at age 8080 years old with a history of an aneurysm Father at age 64 history of cancer Has a brother who is 63 years old and a sister Social History Lives with her significant other She smokes 6 cigarettes a day for 50 years Does not drink alcohol Physical Exam Vital Signs Vital Signs Date Time Temp Pulse Resp B/P (MAP) Pulse Ox O2 Delivery O2 Flow Rate FiO2 01/22/18 11:13 97.7 63 20 155/70 (98) 99 Simple Mask 2 01/22/18 06:40 97.7 57 22 127/70 (89) 98 Physical Exam GENERAL: This is a well-nourished, well-developed patient, in no apparent distress. SKIN: No rashes, ecchymoses or lesions. Cool and dry. HEAD: Atraumatic. Normocephalic. No temporal or scalp tenderness. Right side of head is shaved and dressed EYES: Pupils equal round and reactive. Extraocular motions intact. No scleral icterus. No injection or drainage. ENT: Nose without bleeding, purulent drainage or septal hematoma. Throat without erythema, tonsillar hypertrophy or exudate. Uvula midline. Airway patent. Tongue appears midline NECK: Trachea midline. No JVD or lymphadenopathy. Supple, nontender, no meningeal signs. CARDIOVASCULAR: Regular rate and rhythm without murmurs, gallops, or rubs. S1- S2 no S3 or S4 RESPIRATORY: Clear to auscultation. Breath sounds equal bilaterally. No wheezes , rales, or rhonchi. GASTROINTESTINAL: Abdomen soft, non-tender, nondistended. No hepato-splenomegaly , or palpable masses. No guarding. MUSCULOSKELETAL: Extremities without clubbing, cyanosis, or edema. No joint tenderness, effusion, or edema noted. No calf tenderness. Negative Homans sign bilaterally. NEUROLOGICAL: Awake and alert. Cranial nerves II through XII intact. Motor and sensory grossly within normal limits. 4 out of 5 muscle strength in all muscle groups. ABNormal speech. Insight and judgment is limited Mood and behavior is somewhat appropriate postop Imaging Last Impressions Head CT 01/22/18 0000 Signed Impressions: Service Date/Time: Monday, January 22, 2018 15:44 - CONCLUSION: 1. Postsurgical changes characteristic of a shunt placement. There is a right ventricular shunt in place in the right lateral ventricle. Small amount of intracranial air. 2. Bilateral cortical atrophy. Paulino Cotton MD Assessment and Plan Assessment and Plan Status post ATTENDING PHYSICIAN shunt for normal pressure hydrocephalus Continue PT and OT Diabetes continue on sliding scale coverage with Accu-Cheks before meals and at bedtime Hypertension on medications Hyperlipidemia home medications Dementia home medications Tobacco abuse/COPD recommend smoking cessation GERD continue on PPI Code Status Full code Discussed Condition With Patient and RN and family at bedside Joseluis Mauricio DO Jan 22, 2018 16:23
[2018-01-22] MEDS: INSULIN ASPART SUPPLEMENTAL SCALE SQ SCH ×2 (17:00→21:00)
[2018-01-22 20:45] VITALS: BP 123/67; PULSE 56; RESP 17; TEMP 97.2; O2SAT 100
[2018-01-22] MEDS ORDERED: ZOLPIDEM TARTRATE 5 MG TAB PO PRN (21:00)
[2018-01-22] MEDS: SODIUM CHLORIDE 0.9% FLUSH 10 ML FLUSH IV FLUSH SCH (22:22)
[2018-01-22] MEDS: SODIUM CHLOR 0.9% 1000 ML INJ 1,000 ML IV SCH (22:22)
[2018-01-22] MEDS: MEMANTINE HCL 10 MG TAB PO SCH (22:23)
[2018-01-22] MEDS: DOCUSATE SODIUM 50 MG/SENNA 8.6 MG TAB PO SCH (22:23)
[2018-01-22] MEDS: ATORVASTATIN 40 MG TAB PO SCH (22:23)
[2018-01-22] MEDS: PROPRANOLOL HCL 80 MG TAB PO SCH (22:23)
[2018-01-23] VITALS (7 sets, daily range): BP systolic 107–153; BP diastolic 64–74; PULSE 59–75; RESP 18–20; TEMP 97.3–98.6; O2SAT 92–100
[2018-01-23] MEDS: ACETAMINOPHEN/HYDROcodone 325 MG/10 MG TAB PO PRN (02:18)
[2018-01-23] MEDS: SODIUM CHLOR 0.9% 1000 ML INJ 1,000 ML IV SCH (06:30)
[2018-01-23] MEDS: INSULIN ASPART SUPPLEMENTAL SCALE SQ SCH ×4 (08:00→22:44)
[2018-01-23] MEDS ORDERED: NON-FORMULARY DRUG (Lisinopril-Hctz 1 TAB) PO SCH (09:00)
[2018-01-23 09:16] LABS: AUTOMATED NEUTROPHIL # 7.7 TH/MM3 (1.8-7.7); BASOPHIL # 0.1 TH/MM3 (0-0.2); BASOPHIL % 0.7 % (0.0-2.0); EOSINOPHIL # 0.1 TH/MM3 (0-0.4); EOSINOPHIL % 0.7 % (0.0-4.0); HEMOGLOBIN 11.7 GM/DL (11.6-15.3); LYMPH % 14.5 % (9.0-44.0); LYMPHOCYTE # 1.5 TH/MM3 (1.0-4.8); MEAN CELL VOLUME 86.2 FL (80.0-100.0); MEAN CORPUSCULAR HEMOGLOBIN 28.8 PG (27.0-34.0); MEAN CORPUSCULAR HGB CONC 33.4 % (32.0-36.0); MEAN PLATELET VOLUME 7.8 FL (7.0-11.0); MONO % 8.5 % (0.0-8.0); MONOCYTE # 0.9 TH/MM3 (0-0.9); NEUT % 75.6 % (16.0-70.0); PLATELET COUNT 236 TH/MM3 (150-450); RED BLOOD COUNT 4.06 MIL/MM3 (4.00-5.30); RED CELL DISTRIBUTION WIDTH 12.9 % (11.6-17.2); WHITE BLOOD COUNT 10.1 TH/MM3 (4.0-11.0)
[2018-01-23] MEDS: PANTOPRAZOLE SOD 40 MG DELAYED RELEASE TAB PO SCH (09:36)
[2018-01-23] MEDS: CITALOPRAM HYDROBROMIDE 40 MG TAB PO SCH (09:36)
[2018-01-23] MEDS: HYDROCHLOROTHIAZIDE 25 MG TAB PO SCH (09:36)
[2018-01-23] MEDS: LISINOPRIL 20 MG TAB PO SCH (09:37)
[2018-01-23] MEDS: DOCUSATE SODIUM 50 MG/SENNA 8.6 MG TAB PO SCH ×2 (09:37→22:42)
[2018-01-23] MEDS: MEMANTINE HCL 10 MG TAB PO SCH ×2 (09:37→22:43)
[2018-01-23] MEDS: SODIUM CHLORIDE 0.9% FLUSH 10 ML FLUSH IV FLUSH SCH ×2 (09:37→22:42)
[2018-01-23 09:48] LABS: ALBUMIN 3.3 GM/DL (3.4-5.0); AST (GOT) 14 U/L (15-37); BICARBONATE 27.2 MEQ/L (21.0-32.0); BLOOD UREA NITROGEN 21 MG/DL (7-18); CALCIUM 8.5 MG/DL (8.5-10.1); CHLORIDE 103 MEQ/L (98-107); CREATININE 1.11 MG/DL (0.50-1.00); GLOMERULAR FILTRATION RATE 48 ML/MIN (>89); GLUCOSE,RANDOM 134 MG/DL (74-106); MAGNESIUM 1.7 MG/DL (1.5-2.5); SODIUM (NA) 138 MEQ/L (136-145)
[2018-01-23 09:56] LABS: ALKALINE PHOSPHATASE 52 U/L (45-117); ALT (GPT) 17 U/L (10-53); FREE T4 1.31 NG/DL (0.76-1.46); PHOSPHORUS 3.2 MG/DL (2.5-4.9); TOTAL BILIRUBIN ADULT 0.6 MG/DL (0.2-1.0); TOTAL PROTEIN 6.2 GM/DL (6.4-8.2)
[2018-01-23] MEDS: ONDANSETRON HCL 4 MG/2 ML VIAL IV PUSH PRN (10:05)
--- NOTE | 2018-01-23 10:12 | HHI.NSPN ---
(Ben Sierra) History Chief Complaint: Incisional discomfort. Disorientation. (Ben Sierra) Interval History 01/23/18: Pt awakens to voice but fatigues easily. at bedside states she has been sleeping a lot. She awakens easily to voice and answers some simple questions. She is disorientated and cannot say where she is. She identifies her . She follows some simple commands. (Ben Sierra) Review of Systems General: Negative for: fever, chills, insomnia Respiratory: Negative for: shortness of breath, cough, sputum Cardiovascular: Negative for: chest pain Gastrointestinal: Negative for: nausea, vomitting (Ben Sierra) Exam Results Vital Signs Date Time Temp Pulse Resp B/P (MAP) Pulse Ox O2 Delivery O2 Flow Rate FiO2 01/23/18 08:18 98.6 65 18 107/69 (82) 98 01/22/18 15:30 Simple Mask 2 Intake and Output 01/23/18 01/23/18 01/24/18 08:00 16:00 00:00 Intake Total 100 ml Output Total 500 ml Balance -400 ml (Ben Sierra) Physical Examination General: Pt resting comfortably in bed but awakens to voice. Eyes: Pupils 3mm bilaterally reactive bilaterally. Sclera anicteric. Resp: CTA bilaterally. Heart: NSR no murmurs Abd: Soft positive bs. Incision with bandage in place. Skin: Incisions clean and dry. No signs of infection. Muscle: Moves all 4 extremities Neuro: Pt awakens to voice. She does fall asleep if not stimulated by talking to her. She is disoriented but follows commands. (Ben Sierra) Lab, Micro, Other Results Last Impressions Head CT 01/22/18 0000 Signed Impressions: Service Date/Time: Monday, January 22, 2018 15:44 - CONCLUSION: 1. Postsurgical changes characteristic of a shunt placement. There is a right ventricular shunt in place in the right lateral ventricle. Small amount of intracranial air. 2. Bilateral cortical atrophy. Paulino Cotton MD Laboratory Tests Test 01/23/18 08:34 White Blood Count 10.1 TH/MM3 Red Blood Count 4.06 MIL/MM3 Hemoglobin 11.7 GM/DL Hematocrit 35.0 % Mean Corpuscular Volume 86.2 FL Mean Corpuscular Hemoglobin 28.8 PG Mean Corpuscular Hemoglobin Concent 33.4 % Red Cell Distribution Width 12.9 % Platelet Count 236 TH/MM3 Mean Platelet Volume 7.8 FL Neutrophils (%) (Auto) 75.6 % Lymphocytes (%) (Auto) 14.5 % Monocytes (%) (Auto) 8.5 % Eosinophils (%) (Auto) 0.7 % Basophils (%) (Auto) 0.7 % Neutrophils # (Auto) 7.7 TH/MM3 Lymphocytes # (Auto) 1.5 TH/MM3 Monocytes # (Auto) 0.9 TH/MM3 Eosinophils # (Auto) 0.1 TH/MM3 Basophils # (Auto) 0.1 TH/MM3 CBC Comment DIFF FINAL Differential Comment Blood Urea Nitrogen 21 MG/DL Creatinine 1.11 MG/DL Random Glucose 134 MG/DL Total Protein 6.2 GM/DL Albumin 3.3 GM/DL Calcium Level 8.5 MG/DL Phosphorus Level 3.2 MG/DL Magnesium Level 1.7 MG/DL Alkaline Phosphatase 52 U/L Aspartate Amino Transf (AST/SGOT) 14 U/L Alanine Aminotransferase (ALT/SGPT) 17 U/L Total Bilirubin 0.6 MG/DL Sodium Level 138 MEQ/L Potassium Level 4.1 MEQ/L Chloride Level 103 MEQ/L Carbon Dioxide Level 27.2 MEQ/L Anion Gap 8 MEQ/L Estimat Glomerular Filtration Rate 48 ML/MIN Free Thyroxine 1.31 NG/DL Thyroid Stimulating Hormone 3rd Gen 1.340 uIU/ML (Ben Sierra) Medical Decision Making Impression and Plan A: 72 y/o FM s/p right 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 F/u CT head looks good with no ICH and placement within ventricle. P: Continue to monitor neuro exam PT will increase activity Discussed with RN using minimal pain medication if possible. states she is very sensitive to medication. (Ben Sierra) Attending Statement The exam, history, and the medical decision-making described in the above note were completed with the assistance of the mid-level provider. I reviewed and agree with the findings presented. I attest that I had a [id number] encounter with the patient on the same day, and personally performed and documented my assessment and findings in the medical record. She is more confused than normal according to her . Likely related to medications and unfamiliar environment. Postop CT scan with no complications. Anticipate discharge home tomorrow if stable. (Omar Fox MD) Ben Sierra Jan 23, 2018 10:12 Omar Fox MD Jan 23, 2018 15:52
[2018-01-23] MEDS ORDERED: ACETAMINOPHEN 500 MG CPLT PO PRN (14:30)
--- NOTE | 2018-01-23 16:51 | HHI.PR ---
Subjective Remarks 72-year-old female who had altered mental status due to increased intracranial pressure. The symptoms were relieved approximately a month ago when she had a therapeutic lumbar puncture with drainage. Symptoms of headaches and altered mentation recurred when pressure recurred and the decision to place a PLANT SCIENTIST shunt was made. She is currently status post PLANT SCIENTIST shunt placement POD #1. She is very sleepy today. Objective Vitals Vital Signs Date Time Temp Pulse Resp B/P (MAP) Pulse Ox O2 Delivery O2 Flow Rate FiO2 01/23/18 15:32 97.3 70 18 140/64 (89) 92 01/23/18 12:23 98 Nasal Cannula 2.00 01/23/18 11:40 97.9 65 20 151/72 (98) 95 01/23/18 08:18 98.6 65 18 107/69 (82) 98 01/23/18 04:30 97.3 68 20 110/65 (80) 98 01/23/18 00:00 98.0 59 18 126/65 (85) 100 01/22/18 20:45 97.2 56 17 123/67 (85) 100 I/O 01/22/18 01/22/18 01/22/18 01/23/18 01/23/18 01/23/18 07:00 15:00 23:00 07:00 15:00 23:00 Intake Total 1000 ml 400 ml 100 ml 480 ml Output Total 325 ml 600 ml 500 ml Balance 675 ml -200 ml -400 ml 480 ml Intake Oral 400 ml 100 ml 480 ml IV Total 1000 ml Output Urine Total 300 ml 600 ml 500 ml Estimated Blood Loss 25 ml # Voids 2 # Bowel Movements 0 0 0 Result Diagram: 01/23/18 0834 01/23/18 0834 Objective Remarks GENERAL: Well-nourished, well-developed patient. SKIN: Warm and dry. HEAD: Normocephalic. EYES: No scleral icterus. No injection or drainage. NECK: Supple, trachea midline. No JVD or lymphadenopathy. CARDIOVASCULAR: Regular rate and rhythm without murmurs, gallops, or rubs. RESPIRATORY: Breath sounds equal bilaterally. No accessory muscle use. GASTROINTESTINAL: Abdomen soft, non-tender, nondistended. EXTREMITIES: No cyanosis, or edema. NEUROLOGICAL: Somnolent but arousable, appears to be oriented to , no focal deficits A/P Problem List: (1) Dementia ICD Code: F03.90 - Unspecified dementia without behavioral disturbance (2) Diabetes mellitus ICD Code: E11.9 - Type 2 diabetes mellitus without complications (3) NPH (normal pressure hydrocephalus) ICD Code: G91.2 - (Idiopathic) normal pressure hydrocephalus (4) Hyperlipidemia ICD Code: E78.5 - Hyperlipidemia, unspecified (5) Hypertension ICD Code: I10 - Essential (primary) hypertension Assessment and Plan Altered mental status Resolved with therapeutic lumbar puncture a month ago PLANT SCIENTIST shunt placed one day ago, expect improvement Today she is very sleepy Hypersomnolence Consider lingering effect of anesthesia versus sensitivity to [place], [place] discontinued We will monitor for today, if not improving a repeat brain scan Type 2 diabetes Accu-Cheks with sliding scale coverage Diabetic diet Dementia Continue with home meds DVT prophylaxis Wojciech Carter MD Jan 23, 2018 16:51
[2018-01-23 18:10] LABS: HEMOGLOBIN A1C 7.2 % (4.3-6.0)
[2018-01-23] MEDS: PROPRANOLOL HCL 80 MG TAB PO SCH (21:00)
[2018-01-23] MEDS: ATORVASTATIN 40 MG TAB PO SCH (22:42)
[2018-01-24] VITALS: BP 148/72; PULSE 74; RESP 18; TEMP 98.2; O2SAT 95
[2018-01-24] MEDS: ONDANSETRON HCL 4 MG/2 ML VIAL IV PUSH PRN (01:02)
[2018-01-24 04:00] VITALS: BP 176/76; PULSE 73; RESP 18; TEMP 98.2; O2SAT 92
[2018-01-24] MEDS: SODIUM CHLOR 0.9% 1000 ML INJ 1,000 ML IV SCH (06:30)
[2018-01-24 08:45] VITALS: BP 177/76; PULSE 72; RESP 20; TEMP 98.2; O2SAT 92
[2018-01-24] MEDS: SODIUM CHLORIDE 0.9% FLUSH 10 ML FLUSH IV FLUSH SCH (09:35)
[2018-01-24] MEDS: INSULIN ASPART SUPPLEMENTAL SCALE SQ SCH ×2 (09:35→11:59)
[2018-01-24] MEDS: MEMANTINE HCL 10 MG TAB PO SCH (09:35)
[2018-01-24] MEDS: LISINOPRIL 20 MG TAB PO SCH (09:35)
[2018-01-24] MEDS: PANTOPRAZOLE SOD 40 MG DELAYED RELEASE TAB PO SCH (09:35)
[2018-01-24] MEDS: HYDROCHLOROTHIAZIDE 25 MG TAB PO SCH (09:35)
[2018-01-24] MEDS: CITALOPRAM HYDROBROMIDE 40 MG TAB PO SCH (09:35)
[2018-01-24] MEDS: DOCUSATE SODIUM 50 MG/SENNA 8.6 MG TAB PO SCH (09:35)
[2018-01-24] MEDS ORDERED: PNEUMOCOCCAL POLYVALENT INJ 25 MCG/0.5 ML SYR IM ONE (10:00)
--- NOTE | 2018-01-24 11:24 | HHI.NSPN ---
History Chief Complaint: Incisional discomfort. Disorientation. Interval History 01/23/18: Pt awakens to voice but fatigues easily. at bedside states she has been sleeping a lot. She awakens easily to voice and answers some simple questions. She is disorientated and cannot say where she is. She identifies her . She follows some simple commands. 01/24/18: Pt more awake today. states she is doing much better today. She is ambulating to the bathroom. She has incisional discomfort but no headache. Review of Systems General: Negative for: fever, chills, insomnia Respiratory: Negative for: shortness of breath, cough, sputum Cardiovascular: Negative for: chest pain Gastrointestinal: Negative for: nausea, vomitting, diarrhea, constipation Exam Results Vital Signs Date Time Temp Pulse Resp B/P (MAP) Pulse Ox O2 Delivery O2 Flow Rate FiO2 01/24/18 08:45 98.2 72 20 177/76 (109) 92 01/24/18 08:24 Nasal Cannula 2.00 Intake and Output 01/24/18 01/24/18 01/25/18 08:00 16:00 00:00 Output Total 300 ml Balance -300 ml Physical Examination General: Pt resting comfortably in bed but awakens to voice. Eyes: Pupils 3mm bilaterally reactive bilaterally. Sclera anicteric. Resp: CTA bilaterally. Heart: NSR no murmurs Abd: Soft positive bs. Incisional soreness. Skin: Incisions clean and dry. No signs of infection. New bandages placed. Muscle: Moves all 4 extremities. Ambulating to bathroom. Neuro: Pt much more awake today. Speech is more appropriate. Follows commands well. She ambulates to the bathroom. Lab, Micro, Other Results Last Impressions Head CT 01/22/18 0000 Signed Impressions: Service Date/Time: Monday, January 22, 2018 15:44 - CONCLUSION: 1. Postsurgical changes characteristic of a shunt placement. There is a right ventricular shunt in place in the right lateral ventricle. Small amount of intracranial air. 2. Bilateral cortical atrophy. Paulino Cotton MD 301/24/18 01/25/18 15:00 23:00 07:00 # Voids 4 Medical Decision Making Impression and Plan A: 72 y/o FM s/p right ADJUSTMENT SUPERVISOR shunt. F/u CT head looks good with no ICH and placement within ventricle. P: D/C Home Tylenol for pain. Ben Sierra Jan 24, 2018 11:24 am
[2018-01-24 11:40] VITALS: BP_SYST 191; PULSE 68; RESP 20; TEMP 98.3; O2SAT 95
--- NOTE | 2018-01-24 11:56 | HHI.FF ---
Face to Face Verification Diagnosis: (1) Diabetes mellitus (2) Dementia (3) NPH (normal pressure hydrocephalus) (4) Hyperlipidemia (5) Hypertension Physical Therapy Order: Evaluate and Treat, Improve ambulation, Strength and gait training Home Health Nursing Order: Signs/symptoms of disease process Wound care and dressing changes Nursing assessment with vital signs I have seen patient Shannan Griggs on 01/24/18. My clinical findings support the need for the requested home health care services because: Deconditioned w/ increased weakness Impaired cognition/judgement High risk of falls I certify that my clinical findings support that this patient is homebound because: Impaired cognitive ability/safety Unsteady gait/balance Unable to use public transportation Ben Sierra Jan 24, 2018 11:56 am
[2018-01-24] MEDS ORDERED: WALKER WHEELS/F1 MIS (12:33)
[2018-01-24] MEDS ORDERED: CLON0.1T PO (13:46)
[2018-01-24 15:36] VITALS: BP 105/57; PULSE 60; RESP 20; TEMP 97.7; O2SAT 93
--- NOTE | 2018-01-24 15:52 | HHI.PR ---
Subjective Remarks Patient is pleased that his has for the most part woken up today. She is dressed in regular clothing ambulating and much more awake than yesterday. Objective Vitals Vital Signs Date Time Temp Pulse Resp B/P (MAP) Pulse Ox O2 Delivery O2 Flow Rate FiO2 01/24/18 15:36 97.7 60 20 105/57 (73) 93 01/24/18 11:40 98.3 68 20 191/ 95 01/24/18 08:45 98.2 72 20 177/76 (109) 92 01/24/18 08:24 Nasal Cannula 2.00 01/24/18 04:00 98.2 73 18 176/76 (109) 92 01/24/18 00:00 98.2 74 18 148/72 (97) 95 01/23/18 20:00 98.4 75 18 153/74 (100) 96 I/O 01/23/18 01/23/18 01/23/18 01/24/18 01/24/18 01/24/18 07:00 15:00 23:00 07:00 15:00 23:00 Intake Total 100 ml 480 ml 1440 ml Output Total 500 ml 300 ml Balance -400 ml 480 ml -300 ml 1440 ml Intake Oral 100 ml 480 ml 1440 ml Output Urine Total 500 ml 300 ml Bladder Scan Volume Amount 199 ml 411 ml # Voids 2 7 # Bowel Movements 0 0 Result Diagram: 01/23/1834 01/23/1834 Objective Remarks GENERAL: Well-nourished, well-developed patient. SKIN: Warm and dry. HEAD: Normocephalic. EYES: No scleral icterus. No injection or drainage. NECK: Supple, trachea midline. No JVD or lymphadenopathy. CARDIOVASCULAR: Regular rate and rhythm without murmurs, gallops, or rubs. RESPIRATORY: Breath sounds equal bilaterally. No accessory muscle use. GASTROINTESTINAL: Abdomen soft, non-tender, nondistended. EXTREMITIES: No cyanosis, or edema. NEUROLOGICAL: Mostly awake, dozing off in recliner intermittently, alert and oriented 3, no focal deficits A/P Problem List: (1) Dementia ICD Code: F03.90 - Unspecified dementia without behavioral disturbance (2) Diabetes mellitus ICD Code: E11.9 - Type 2 diabetes mellitus without complications (3) NPH (normal pressure hydrocephalus) ICD Code: G91.2 - (Idiopathic) normal pressure hydrocephalus (4) Hyperlipidemia ICD Code: E78.5 - Hyperlipidemia, unspecified (5) Hypertension ICD Code: I10 - Essential (primary) hypertension Assessment and Plan Altered mental status Resolved with therapeutic lumbar puncture a month ago [employer] shunt placed one day ago, expect improvement More awake today. Near her baseline according to her . Hypersomnolence Mostly resolved according to her Hypertension Single episode today. Has been blamed anxiety. Systolic pressure of 191 resolved down to 105 following single dose of clonidine Type 2 diabetes Accu-Cheks with sliding scale coverage Diabetic diet Dementia Continue with home meds DVT prophylaxis SCDs Discharge planning Discharge has been placed by neurosurgery. Patient is clear from my standpoint as well. Wojciech Jimenez MD Jan 24, 2018 15:52
== END 2018-01-24 15:51 | disposition home health service (06) | DRG 33 ==
LOC: HSDI 05:52 → N05A 16:13
PROVIDERS: ADMIT Neurological Surgery; ATTEND Neurological Surgery
PROC: 00160J6 Bypass Cerebral Ventricle to Peritoneal Cavity with Synthetic Substitute, Open Approach (ICD-10-PCS; principal; 2018-01-22 09:11)
DX: G91.2 (Idiopathic) normal pressure hydrocephalus (principal); J44.9 Chronic obstructive pulmonary disease, unspecified; F03.90 Unspecified dementia, unspecified severity, without behavioral disturbance, psychotic disturbance, mood disturbance, and anxiety; E11.9 Type 2 diabetes mellitus without complications; E78.5 Hyperlipidemia, unspecified; I10 Essential (primary) hypertension; R29.6 Repeated falls; K21.9 Gastro-esophageal reflux disease without esophagitis; Z85.828 Personal history of other malignant neoplasm of skin; Z79.84 Long term (current) use of oral hypoglycemic drugs; F17.210 Nicotine dependence, cigarettes, uncomplicated; G47.10 Hypersomnia, unspecified; N39.41 Urge incontinence; R26.9 Unspecified abnormalities of gait and mobility
CPT/HCPCS: 70450; 80053; 82948; 83036; 83735; 84100; 84439; 84443; 85025; 94150; J0690; J1100; J1580; J1815; J2250; J2270; J2370; J2405; J2710; J3010; J3370; J3480; J7030; J7120